=== PATIENT | female | born 1970 | race Caucasian/White ===

== ENCOUNTER 2018-07-26 04:55 | Emergency (ER) | payer OTHER ==
[~2018-07-26] VITALS: Ht 152.4 cm; Wt 56.0 kg
[2018-07-26] MEDS ORDERED: SODIUM CHLORIDE 0.9% 1,000 ML IV ONE (05:19)
[2018-07-26] MEDS ORDERED: MORPHINE SULFATE 4 MG/ML, 1ML ONE (05:24)
[2018-07-26] MEDS ORDERED: ONDANSETRON 2MG/ML, 2ML ONE (05:24)
[2018-07-26] MEDS ORDERED: SODIUM CHLORIDE FLUSH 10ML SYR IVF ONE (05:30)
[2018-07-26] MEDS ORDERED: ONDANSETRON 2MG/ML, 2ML IVPush ONE (05:30)
[2018-07-26] MEDS ORDERED: MORPHINE SULFATE 4 MG/ML, 1ML IVPush PRN (05:30)
[2018-07-26 05:48] LABS: MICROSCOPIC NOT IND
[2018-07-26 06:03] LABS: BASOPHILS # (AUTO) 0.05 x10^3/uL (0-0.1); BASOPHILS % (AUTO) 1 % (0-1); EOSINOPHILS % (AUTO) 1 % (1-7); LYMPHOCYTES # (AUTO) 1.62 x10^3/uL (1-3.4); LYMPHOCYTES % (AUTO) 20 % (22-44); MD NO; MEAN CORPUSCULAR HEMOGLOBIN 29.9 pg (27.0-34.8); MEAN CORPUSCULAR HGB CONC 32.9 g/dL (32.4-35.8); MEAN PLATELET VOLUME 8.4 fL (7.4-10.4); MONOCYTES # (AUTO) 0.73 x10^3/uL (0.2-0.8); MONOCYTES % (AUTO) 9 % (2-9); NEUTROPHILS # (AUTO) 5.41 x10^3/uL (1.8-6.8); NEUTROPHILS % (AUTO) 68 % (42-75); PLATELET COUNT 287 x10^3/uL (130-400); RED BLOOD COUNT 4.65 x10^6/uL (3.82-5.3); RED CELL DISTRIBUTION WIDTH 15.6 % (9.6-15.2)
[2018-07-26 06:04] LABS: CULTURE INDICATED? NO
[2018-07-26 06:13] LABS: ALANINE AMINOTRANSFERASE 35 U/L (12-78); ALBUMIN 3.4 g/dL (3.4-5.0); ANION GAP 6 mmol/L (5-15); CALCIUM 7.8 mg/dL (8.5-10.1); CHLORIDE 108 mmol/L (98-107); CREATININE 0.76 mg/dL (0.55-1.02)
[2018-07-26 06:17] LABS: ALKALINE PHOSPHATASE 54 U/L (45-117); BILIRUBIN,TOTAL 0.7 mg/dL (0.2-1.0); TOTAL PROTEIN 6.7 g/dL (6.4-8.2)
--- NOTE | 2018-07-26 06:38 | NUR ---
PT STATES MUCH RELIEF AFTER THE PAIN MEDS. POC DISCUSSED. AWAITING CT AT THIS TIME.
--- NOTE | 2018-07-26 06:46 | NUR ---
RECEIVED BEDSIDE REPORT FROM MUMTAZ PEREZ. PT OUT OF ROOM TO IMAGING.
[2018-07-26] MEDS ORDERED: OMNIPAQUE 350 MG/ML, 100ML BOTTLE ONE (06:53)
--- NOTE | 2018-07-26 07:09 | NUR ---
pt back from imaging. bedside.
--- NOTE | 2018-07-26 07:27 | NUR ---
PT AMBULATORY WITH STEADY GAIT TO BATHROOM
--- NOTE | 2018-07-26 07:29 | NUR ---
PT BACK TO [facility]. ALL MONITORS ATTACHED.
[2018-07-26 07:31] VITALS: BP 116/71
--- NOTE | 2018-07-26 07:51 | NUR ---
Patient/Caregiver given discharge instructions and they have confirmed that they understand the instructions. Patient ambulatory with steady gait. PT LEFT WITH ALL PERSONAL BELONGINGS.
== END 2018-07-26 07:53 ==
LOC: ED 07:47
DX: K59.00 Constipation, unspecified (principal); F17.200 Nicotine dependence, unspecified, uncomplicated
CPT/HCPCS: 36415; 74177; 80053; 80307; 81003; 83605; 83690; 84702; 85025; 93005; 96374; 96375; 99284; J2270; J2405; J7030; Q9967